=== PATIENT | female | born 1970 | race Caucasian/White ===

== ENCOUNTER 2023-09-23 15:46 | Outpatient (CLI) | payer BC, SELFPAY ==
--- NOTE | ~2023-09-23 | CT_ITS ---
EXAMINATION: CT soft tissue neck w con DATE: 09/23/2023 16:11 INDICATION: Left neck mass. TECHNIQUE: Computed tomography (CT) of the neck was performed with 75 mL Omnipaque-350 intravenous co ntrast. Automated exposure control and iterative reconstruction technique were employed. The dose-kiana gth product was 398.93 mGy-cm. COMPARISON: None FINDINGS: There is anteroposterior elongation of right right ocular globe. There is a 9 mm nodule in left thyroid lobe, likely not clinically significant. There is mild plaque in the proximal internal c arotid arteries with 0% stenosis relative to normal distal artery lumen diameters. There are no patho logically enlarged lymph nodes. There is mild mucosal thickening in the paranasal sinuses. The mastoi d air cells are normal. There is mild cervical spondylosis. IMPRESSION: 1. Small thyroid nodule, likely not clinically significant. No follow-up is needed. Reviewed, dictated and finalized at location E. IMPRESSION: 1. Small thyroid nodule, likely not clinically significant. No follow-up is nee ded.
[2023-09-23 16:02] LABS: Estimated Glomerular Filt Rate > 60
== END 2023-09-23 15:47 ==
LOC: MICIMG 15:47
PROVIDERS: PCP Family Medicine; Visit Provider Family Medicine
DX: E04.1 Nontoxic single thyroid nodule (principal)
CPT/HCPCS: 70491; Q9967